=== PATIENT | male | born 1995 | race Two or more races ===

== ENCOUNTER 2021-01-10 15:50 | Emergency (ER) | payer MEDICAID, OTHER ==
--- NOTE | 2021-01-10 16:07 | EDM.PDOC ---
ED HPI GENERAL MEDICAL PROBLEM - General Chief Complaint: Respiratory Problem Stated Complaint: ASTHMA SYMPTOMS Time Seen by Provider: 01/10/21 15:53 Source of Information: Reports: Patient History Limitations: Reports: No Limitations - History of Present Illness INITIAL COMMENTS - FREE TEXT/NARRATIVE: 25-year-old male past medical history of asthma presents for needing a medic ation refill. Patient is a resident of [place] but is here for work. He ran out of his albuterol inhaler and also notes that his face mask for his nebulizer machine is broken. He denies any worsening of his asthma symptoms but states that he uses these daily per the direction of his physician in [place]. He denies any worsening cough, fevers, shortness of breath, chest pain. - Related Data Home Meds: Home Meds Albuterol Sulfate 1.25 mg IH Q6H PRN #1 box 01/10/21 [Rx] Albuterol Sulfate [Proair Hfa] 8.5 gm IH Q4H PRN #1 inhaler 01/10/21 [Rx] ED ROS GENERAL - Review of Systems Review Of Systems: Comprehensive ROS is negative, except as noted in HPI. ED EXAM, GENERAL - Physical Exam Exam: See Below Exam Limited By: No Limitations General Appearance: Alert, WD/WN, No Apparent Distress Throat/Mouth: Normal Voice, No Airway Compromise Head: Atraumatic, Normocephalic Neck: Normal Inspection, Supple Respiratory/Chest: No Respiratory Distress, Lungs Clear, Normal Breath Sounds, No Accessory Muscle Use Cardiovascular: Normal Peripheral Pulses, Regular Rate, Rhythm Extremities: Normal Inspection Neurological: Alert, Normal Gait Psychiatric: Normal Affect, Normal Mood Skin Exam: Warm, Dry, Intact, Normal Color Course - Re-Assessments/Exams Free Text/Narrative Re-Assessment/Exam: 01/10/21 16:18 We will discharge with albuterol inhaler as well as albuterol nebulizer solution. Departure - Departure Time of Disposition: 16:18 Disposition: Home, Self-Care 01 Condition: Good Clinical Impression: Asthma Qualifiers: Asthma severity: unspecified severity Asthma persistence: intermittent Asthma complication type: uncomplicated Qualified Code(s): J45.20 - Mild intermittent asthma, uncomplicated - Discharge Information Prescriptions: Albuterol Sulfate 1.25 mg IH Q6H PRN #1 box PRN Reason: Wheezing Albuterol Sulfate [Proair Hfa] 8.5 gm IH Q4H PRN #1 inhaler PRN Reason: Wheezing Instructions: Asthma Attack Prevention, Adult Referrals: PCP,None [Primary Care Provider] - Forms: ED Department Discharge Additional Instructions: The following information is given to patients seen in the emergency department who are being discharged to home. This information is to outline your options for follow-up care. We provide all patients seen in our emergency department with a follow-up referral. The need for follow-up, as well as the timing and circumstances, are variable depending upon the specifics of your emergency department visit. If you don't have a primary care physician on staff, we will provide you with a referral. We always advise you to contact your personal physician following an emergency department visit to inform them of the circumstance of the visit and for follow-up with them and/or the need for any referrals to a consulting specialist. The emergency department will also refer you to a specialist when appropriate. This referral assures that you have the opportunity for follow-up care with a specialist. All of these measure are taken in an effort to provide you with optimal care, which includes your follow-up. Under all circumstances we always encourage you to contact your private physician who remains a resource for coordinating your care. When calling for follow-up care, please make the office aware that this follow-up is from your recent emergency room visit. If for any reason you are refused follow-up, please contact the [facility] Emergency Department at and asked to speak to the emergency department charge nurse. Please follow up with your primary care physician. If you do not have a primary care physician, see below: [facility] [address] [place] [id number] [facility] [place] [facility] [address] [place] [address] [facility] [address] [place] [id number]
== END 2021-01-10 16:28 | disposition home or self-care (01) ==
LOC: MW.ED 15:50
DX: J45.20 Mild intermittent asthma, uncomplicated (principal)
CPT/HCPCS: 99282; 99283

== ENCOUNTER 2021-02-12 00:23 | Emergency (ER) | payer MEDICAID ==
[2021-02-12] MEDS ORDERED: Albuterol 6.7 GM Inhaler INH ONE (00:32)
--- NOTE | 2021-02-12 00:35 | EDM.PDOC ---
ED HPI GENERAL MEDICAL PROBLEM - General Chief Complaint: Chest Pain Stated Complaint: ANXIETY Time Seen by Provider: 02/12/21 00:24 - History of Present Illness INITIAL COMMENTS - FREE TEXT/NARRATIVE: History of present illness: [] The patient started having chest pain 45 minutes ago. It is in the left chest in the area between the midclavicular and anterior axillary line below the left pectoralis muscle. It hurts to breathe and move. The patient has no cough or fever. The patient quit smoking 8 years ago. He is not diabetic. He does not have a family history of young people with angina or coronary vessel disease. The patient was here for 621 because he is come to work and did not have his albuterol. He was given an inhaler. He says he has a chamber at home in [place] but not here. He does not feel like the inhaler is working very well and feels short of breath even after he uses it so he is using it more often than he should according to him. Review of systems: As per history of present illness and below otherwise all systems reviewed and negative. Past medical history: As per history of present illness and as reviewed below otherwise noncontributory. Surgical history: As per history of present illness and as reviewed below otherwise noncontributory. Social history: No reported history of drug or alcohol abuse. Family history: As per history of present illness and as reviewed below otherwise noncontributory. Physical exam: Constitutional - well developed, well-nourished and in no acute distress HEENT - normocephalic, no evidence of trauma - external nose and mouth normal - no mass in neck and no JVD - mucosae moist EYES - full EOM, PERRL, no icterus - no evidence of inflammation, injection, or drainage Respiratory -tenderness in the area under the left pectoralis muscle where the pain is described. Slightly prolonged expiratory phase of respiration. No respiratory distress, equal bilateral expansion, lungs clear to auscultation and no abnormal lung sounds except diminished sounds in the extreme right base. Cardiovascular - Regular Rhythm with S1 and S2 appreciated and no murmur, gallop or rub. GI - abdomen soft without distension or organomegaly - normal bowel sounds - no guard or rebound Musculoskeletal no gross deformity of long bones or joints - no tenderness, swelling or edema Neurologic - Alert and oriented times four - CN II-XII grossly intact - motor sensory and coordination symmetrically normal Psychiatric - appropriate mood and affect with normal thought content Hematologic - No petechiae or purpura - mucosa appropriate color and sclera not pale - normal nail bed color and refill Integument - no rash or evidence of trauma - normal turgor Diagnostics: [] Therapeutics: [] Impression: [] Plan: [] Definitive disposition and diagnosis as appropriate pending reevaluation and review of above. chest area Pain Score (Numeric/FACES): 6 - Related Data Allergies Allergy/AdvReac Type Severity Reaction Status Date / Time No Known Allergies Allergy Verified 02/12/21 00:24 Home Meds: Home Meds Albuterol Sulfate 1.25 mg IH Q6H PRN #1 box 01/10/21 [Rx] Albuterol Sulfate [Proair Hfa] 8.5 gm IH Q4H PRN #1 inhaler 01/10/21 [Rx] Past Medical History HEENT History: Reports: None Cardiovascular History: Reports: None Respiratory History: Reports: Asthma Gastrointestinal History: Reports: None Genitourinary History: Reports: None Musculoskeletal History: Reports: None Neurological History: Reports: None Psychiatric History: Reports: Anxiety Endocrine/Metabolic History: Reports: None 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 Hematologic History: Reports: None Immunologic History: Reports: None Oncologic (Cancer) History: Reports: None Dermatologic History: Reports: None - Infectious Disease History Infectious Disease History: Reports: None - Past Surgical History Head Surgeries/Procedures: Reports: None Social & Family History - Family History Family Medical History: No Pertinent Family History - Tobacco Use Tobacco Use Status *Q: Former Tobacco User Used Tobacco, but Quit: No - Caffeine Use Caffeine Use: Reports: None - Recreational Drug Use Recreational Drug Use: No ED ROS GENERAL - Review of Systems Review Of Systems: Comprehensive ROS is negative, except as noted in HPI. ED EXAM, GENERAL - Physical Exam Exam: See Below Free Text/Narrative:: My physical exam is in the HPI #1 Interpretation EKG Interpretation Comments: EKG sinus rhythm. Heart rate 61. CT 153. QT duration 398. QRS axis 56. Increased P wave size. No prior for comparison. QRS late transition to R wave otherwise normal. Impression no acute injury or arrhythmia possible left atrial enlargement. Course - Vital Signs Text/Narrative:: 0154 hrs. the patient is in no distress. He has no exertional pain diaphoresis nausea or dyspnea. The patient is low risk for coronary event. Plan to discharge with treatment with anti-inflammatory medicine. Patient is a heart score of 1 and is therefore low risk Last Recorded V/S: Last Vital Signs Temp 36.4 C 02/12/21 01:44 Pulse 58 L 02/12/21 00:24 Resp 20 02/12/21 00:24 BP 138/81 02/12/21 00:24 Pulse Ox 97 02/12/21 00:24 - Orders/Labs/Meds Orders: Active Orders 24 hr Category Date Time Status EKG 12 Lead [EKG Documentation Completion] [RC] STAT Care 02/12/21 00:30 Active RT Post Treatment Assessment [RC] Click to Edit Care 02/12/21 00:33 Active RT Pre-Treatment Assessment [RC] Click to Edit Care 02/12/21 00:33 Active Labs: Laboratory Tests 02/12/21 Range/Units 00:35 Troponin I < 0.050 (0.000-0.056) ng/mL Meds: Medications Discontinued Medications Generic Name Dose Route Start Last Admin Trade Name James PRN Reason Stop Dose Admin Albuterol 8 gm 02/12/21 00:32 02/12/21 00:48 Albuterol 6.7 Gm Inhaler INH 02/12/21 00:33 8 gm ONETIME ONE Administration Albuterol Confirm 02/12/21 00:45 02/12/21 00:49 Albuterol 8 Gm Inhaler Administered 02/12/21 00:46 Not Given Dose 8 gm INH .STK-MED ONE Ibuprofen 800 mg 02/12/21 01:38 02/12/21 01:44 Ibuprofen 800 Mg Tab PO 02/12/21 01:39 800 mg ONETIME ONE Administration Ketorolac Tromethamine 30 mg 02/12/21 01:34 02/12/21 01:39 Ketorolac 30 Mg/Ml Sdv IM 02/12/21 01:35 Not Given ONETIME ONE Departure - Departure Time of Disposition: 01:54 Disposition: Home, Self-Care 01 Condition: Good Clinical Impression: Chest wall pain - Discharge Information Instructions: Chest Wall Pain, [id number] Referrals: PCP,None [Primary Care Provider] - Forms: ED Department Discharge Additional Instructions: [facility] [address] [place], [place] [id number] [facility] [address] [place] [id number] The following information is given to patients seen in the emergency department who are being discharged to home. This information is to outline your options for follow-up care. We provide all patients seen in our emergency department with a follow-up referral. The need for follow-up, as well as the timing and circumstances, are variable d epending upon the specifics of your emergency department visit. If you don't have a primary care physician on staff, we will provide you with a referral. We always advise you to contact your personal physician following an emergency department visit to inform them of the circumstance of the visit and for follow-up with them and/or the need for any referrals to a consulting specialist. The emergency department will also refer you to a specialist when appropriate. This referral assures that you have the opportunity for follow-up care with a specialist. All of these measure are taken in an effort to provide you with optimal care, which includes your follow-up. Under all circumstances we always encourage you to contact your private physician who remains a resource for coordinating your care. When calling for follow-up care, please make the office aware that this follow-up is from your recent emergency room visit. If for any reason you are refused follow-up, please contact the [facility] Emergency Department at and asked to speak to the emergency department charge nurse. Sepsis Event Note (ED) - Evaluation Sepsis Screening Result: No Definite Risk - Focused Exam Vital Signs: Vital Signs Temp Temp Pulse Resp BP Pulse Ox 02/12/21 01:44 36.4 C 02/12/21 00:24 36.2 C 58 L 20 138/81 97 - My Orders Last 24 Hours: My Active Orders 02/12/21 00:30 EKG 12 Lead [EKG Documentation Completion] [RC] STAT 02/12/21 00:33 RT Post Treatment Assessment [RC] Click to Edit RT Pre-Treatment Assessment [RC] Click to Edit - Assessment/Plan Last 24 Hours: My Active Orders 02/12/21 00:30 EKG 12 Lead [EKG Documentation Completion] [RC] STAT 02/12/21 00:33 RT Post Treatment Assessment [RC] Click to Edit RT Pre-Treatment Assessment [RC] Click to Edit
[2021-02-12] MEDS ORDERED: Albuterol 8 GM Inhaler INH ONE (00:45)
[2021-02-12] MEDS ORDERED: Ketorolac 30 MG/ML SDV IM ONE (01:34)
[2021-02-12] MEDS ORDERED: Ibuprofen 800 MG Tab PO ONE (01:38)
--- NOTE | 2021-02-12 01:58 | CR ---
Indication: Chest pain Technique: Chest 1 view Comparison: None Findings/Impression: Cardiovascular and mediastinum: Unremarkable cardiomediastinal silhouette. Lungs and pleural space: Mild eventration of the right hemidiaphragm. Mild left basilar subsegmental atelectasis. No consolidation or pleural effusions. No pneumothorax seen. Bones and soft tissues: No significant findings. Dictated by Tariq Lawson MD @ 02/12/2021 1:57:[address] Tariq Lawson @ Feb 12 2021 1:57AM
== END 2021-02-12 02:27 | disposition home or self-care (01) ==
LOC: MW.ED 00:23
DX: R07.89 Other chest pain (principal); J45.909 Unspecified asthma, uncomplicated; Z87.891 Personal history of nicotine dependence
CPT/HCPCS: 36415; 71045; 84484; 93005; 99285; A9270; 93010; 99283

== ENCOUNTER 2021-02-28 19:31 | Emergency (ER) | payer MEDICAID ==
[2021-02-28] MEDS ORDERED: Doxycycline 100 MG Cap PO ONE (20:05)
--- NOTE | 2021-02-28 20:05 | EDM.PDOC ---
ED HPI GENERAL MEDICAL PROBLEM - General Chief Complaint: Upper Extremity Injury/Pain Stated Complaint: LT ELBOW PROBLEM Time Seen by Provider: 02/28/21 19:36 Source of Information: Reports: Patient History Limitations: Reports: No Limitations - History of Present Illness INITIAL COMMENTS - FREE TEXT/NARRATIVE: Patient is a 25-year-old male who presents today for left elbow pain. Patient that he fell on elbow a few months ago with his arm stretched out. 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 Patient is more so the joint and that his muscles. Patient currently denies any pain redness fever swelling to the arm. Patient denies any recent falls. Patient also mention that he had a tick attached to his lower leg that he was able to get off while in the shower. Patient has 1R. Patient denies having any other joint pain fever chills or symptoms. Left Elbow Pain Score (Numeric/FACES): 6 - Related Data Allergies Allergy/AdvReac Type Severity Reaction Status Date / Time No Known Allergies Allergy Verified 02/28/21 19:46 Home Meds: Home Meds Albuterol Sulfate 1.25 mg IH Q6H PRN #1 box 01/10/21 [Rx] Albuterol Sulfate [Proair Hfa] 8.5 gm IH Q4H PRN #1 inhaler 01/10/21 [Rx] Past Medical History HEENT History: Reports: None Cardiovascular History: Reports: None Respiratory History: Reports: Asthma Gastrointestinal History: Reports: None Genitourinary History: Reports: None Musculoskeletal History: Reports: None Neurological History: Reports: None Psychiatric History: Reports: Anxiety Endocrine/Metabolic History: Reports: Obesity/BMI 30+ 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 Hematologic History: Reports: None Immunologic History: Reports: None Oncologic (Cancer) History: Reports: None Dermatologic History: Reports: None - Infectious Disease History Infectious Disease History: Reports: None - Past Surgical History Head Surgeries/Procedures: Reports: None Social & Family History - Family History Family Medical History: No Pertinent Family History - Tobacco Use Tobacco Use Status *Q: Never Tobacco User Second Hand Smoke Exposure: No - Caffeine Use Caffeine Use: Reports: None - Recreational Drug Use Recreational Drug Use: No Review of Systems - Review of Systems Review Of Systems: See Below Constitutional: Reports: No Symptoms Eyes: Reports: No Symptoms Ears: Reports: No Symptoms Nose: Reports: No Symptoms Mouth/Throat: Reports: No Symptoms Respiratory: Reports: No Symptoms Cardiovascular: Reports: No Symptoms GI/Abdominal: Reports: No Symptoms Genitourinary: Reports: No Symptoms Musculoskeletal: Reports: Other (arm stiffness) Skin: Reports: No Symptoms Neurological: Reports: No Symptoms Psychiatric: Reports: No Symptoms ED EXAM, GENERAL - Physical Exam Exam: See Below Exam Limited By: No Limitations General Appearance: Alert, WD/WN Head: Atraumatic, Normocephalic Extremities: Normal Inspection, Normal Range of Motion, Non-Tender. No: Arm Pain Neurological: Alert, Oriented, Normal Cognition, Normal Gait Skin Exam: Warm, Dry, Intact, No Rash Course - Vital Signs Last Recorded V/S: Last Vital Signs Temp 98.2 F 02/28/21 19:38 Pulse 64 02/28/21 19:38 Resp 18 02/28/21 19:38 BP 144/84 H 02/28/21 19:38 Pulse Ox 97 02/28/21 19:38 - Orders/Labs/Meds Meds: Medications Discontinued Medications Generic Name Dose Route Start Last Admin Trade Name James PRN Reason Stop Dose Admin Doxycycline Hyclate 200 mg 02/28/21 20:05 02/28/21 20:13 Doxycycline 100 Mg Cap PO 02/28/21 20:06 200 mg ONETIME ONE Administration - Re-Assessments/Exams Free Text/Narrative Re-Assessment/Exam: 02/28/21 20:55 Patient elbow was negative for any fractures abnormality. Patient will be discharged home with note. Departure - Departure Time of Disposition: 20:55 Disposition: Home, Self-Care 01 Condition: Good Clinical Impression: Elbow pain, left - Discharge Information *PRESCRIPTION DRUG MONITORING PROGRAM REVIEWED*: Not Applicable *COPY OF PRESCRIPTION DRUG MONITORING REPORT IN PATIENT MAGNUS: Not Applicable Instructions: Joint Pain, [id number] Referrals: PCP,None [Primary Care Provider] - Forms: ED Department Discharge Additional Instructions: The following information is given to patients seen in the emergency department who are being discharged to home. This information is to outline your options for follow-up care. We provide all patients seen in our emergency department with a follow-up referral. The need for follow-up, as well as the timing and circumstances, are variable depending upon the specifics of your emergency department visit. If you don't have a primary care physician on staff, we will provide you with a referral. We always advise you to contact your personal physician following an emergency department visit to inform them of the circumstance of the visit and for follow-up with them and/or the need for any referrals to a consulting specialist. The emergency department will also refer you to a specialist when appropriate. This referral assures that you have the opportunity for follow-up care with a specialist. All of these measure are taken in an effort to provide you with optimal care, which includes your follow-up. Under all circumstances we always encourage you to contact your private physician who remains a resource for coordinating your care. When calling for follow-up care, please make the office aware that this follow-up is from your recent emergency room visit. If for any reason you are refused follow-up, please contact the [facility] Emergency Department at and asked to speak to the emergency department charge nurse. Please follow up with your primary care physician. If you do not have a primary care physician, see below: [facility] [address] [place] [id number] [facility] [address] [place] [address] You were seen today for elbow pain. We did x-ray did not show any fractures or dislocation. He also has concerns about a tick exposure. We gave you 200 mg doxycycline prophylactically. If you have any other symptoms complaints please return to ED. Sepsis Event Note (ED) - Evaluation Sepsis Screening Result: No Definite Risk - Focused Exam Vital Signs: Vital Signs Temp Pulse Resp BP Pulse Ox 02/28/21 19:38 98.2 F 64 18 144/84 H 97 - Assessment/Plan Plan: Patient is a 25-year-old male presents today for left elbow pain. Patient suffered a fall a few months ago. Will obtain x-ray of elbow. Patient also had a possible tick exposure will give prophylaxis doxycycline 20 mg.
--- NOTE | 2021-02-28 20:50 | CR ---
INDICATION: Left elbow pain. FINDINGS: Three views of the left elbow were obtained. There is no acute fracture seen or dislocation. There is no posterior fat pad sign seen. IMPRESSION: No acute bone abnormality. Dictated by Hector Mckinnon MD @ 02/28/2021 8:48:[address] Hector Mckinnon @ Feb 28 2021 8:48PM
== END 2021-02-28 21:09 | disposition home or self-care (01) ==
LOC: MW.ED 19:31
DX: M25.522 Pain in left elbow (principal); J45.909 Unspecified asthma, uncomplicated; E66.9 Obesity, unspecified; Z68.42 Body mass index [BMI] 45.0-49.9, adult
CPT/HCPCS: 73080; 99283; A9270; 99282